=== PATIENT | male | born 1950 | race Caucasian/White ===

== ENCOUNTER 2017-09-13 19:15 | Observation (INO) ==
[2017-09-13] MEDS ORDERED: Aspirin 81 MG TAB.CHEW PO ONE (19:54)
[2017-09-13] MEDS ORDERED: Nitroglycerin 0.4 MG TAB.SUBL SL PRN (19:54)
[2017-09-13] MEDS ORDERED: Ondansetron 4 MG/2 ML VIAL IVP ONE (19:54)
--- NOTE | 2017-09-13 19:57 | Emergency Department Note ---
Disposition Clinical Impression: Flank pain Chest pain Qualifiers: Chest pain type: unspecified Qualified Code(s): R07.9 - Chest pain, unspecified Disposition: Admitted As Inpatient Condition: Fair Referrals: David Alston MD [Primary Care Provider] - Forms: ED Satisfaction Letter Time of Disposition: 21:45 Chest Pain HPI - General Chief Complaint: ED Chest Pain Stated Complaint: chest pain,left arm pain Time Seen by Provider: 09/13/17 19:51 Source: patient Mode of arrival: ambulatory Limitations: no limitations Vital Signs Reviewed: Yes Nursing Notes Reviewed: Yes - History of Present Illness HPI Narrative: 67-year-old male with history of hypertension presents for evaluation of chest pain. Patient states symptom onset was earlier today. Patient states he has had intermittent chest pain. Patient noted the retrosternal chest pain without exertion with radiation to his left side of his chest. Patient reports of nausea but no vomiting. Patient also noted some chills with hot flashes. Patient states the pain has persisted. Patient also has a history of reflux and states that this pain is different than his typical reflux. Patient took a baby aspirin earlier today. Patient states that his initial chest pain has improved but notes a burning sensation in his chest. Patient also noted some dyspnea. No fevers or cough. Patient denies any abdominal pain. Patient does state that he had some testicular pain over the past 24 hours which has since resolved. Severity scale (1-10): 8 - Related Data Home Medications Medication Instructions Recorded Confirmed Amiloride/Hydrochlorothiazide 1 tab PO DAILY 07/18/16 09/13/17 [Amiloride HCl-Hctz 5-50 mg Tab] Aspirin Enteric Coated [Aspirin EC] 81 mg PO DAILY 07/18/16 09/13/17 Omeprazole 20 mg PO BID 07/18/16 09/13/17 Pravastatin Sodium [Pravachol] 40 mg PO DAILY 07/18/16 09/13/17 Quinapril HCl 10 mg PO DAILY 07/18/16 09/13/17 Zolpidem [Ambien] 10 mg PO HS PRN 07/18/16 09/13/17 Allergies Allergy/AdvReac Type Severity Reaction Status Date / Time No Known Allergies Allergy Verified 09/13/17 20:18 All systems ED: reviewed and negative except as stated. Constitutional: Denies: fever Cardiovascular: Reports: chest pain Respiratory: Reports: dyspnea. Denies: cough Gastrointestinal: Reports: nausea. Denies: abdominal pain, vomiting Chest Pain PMH - Past Medical History Medical history: Reports: GERD, hypertension Surgical history: Reports: orthopedic, other Psychiatric history: Reports: anxiety - Social History Smoking Status: Former smoker Alcohol use: Reports: none Drug use: Reports: none Physical Exam - General Limitations: no limitations General appearance: alert, in no apparent distress - Head Head exam: atraumatic, normocephalic, normal inspection - Eye Eye exam: Present: normal appearance, PERRL, EOMI - ENT ENT exam: normal exam, normal oropharynx, mucous membranes moist - Neck Neck exam: Present: normal inspection - Chest Chest inspection: Present: normal inspection, symmetric chest wall rise. Absent : tenderness - Respiratory Respiratory exam: Present: normal lung sounds bilaterally. Absent: respiratory distress - Cardiovascular Cardiovascular exam: Present: regular rate, normal rhythm. Absent: systolic murmur - Abdominal Exam Abdominal exam: Present: soft, Non-Tender - Extremities Exam Extremities exam: Present: normal inspection. Absent: pedal edema - Back Exam Back exam: Present: normal inspection - Neurological Exam Neurological exam: Present: alert - Skin Skin exam: Present: warm, dry, intact, normal color Course Course Narrative: Patient seen and examined. Patient will get a cardiac evaluation with EKG, troponin and chest x-ray. Patient will likely require admission for further cardiac monitoring and testing. - Reevaluation(s) Reevaluation #1: Patient seen and examined. Patient's plan of care was discussed. Patient states he has chronic back pain and perhaps the pain he is experiencing in his abdomen is more related to his back is worse with leaning forward. Time: 21:40 Vital Signs Temperature 98 F 09/13/17 19:16 Pulse Rate 83 09/13/17 19:16 Respiratory Rate 18 09/13/17 19:16 Blood Pressure 193/105 09/13/17 19:16 O2 Sat by Pulse Oximetry 99 09/13/17 19:16 Temperature 98 F 09/13/17 19:16 Pulse Rate 81 09/13/17 21:31 Respiratory Rate 12 09/13/17 21:31 Blood Pressure 123/78 09/13/17 21:31 O2 Sat by Pulse Oximetry 96 09/13/17 21:31 Oxygen Delivery Oxygen Delivery Room Air Chest Pain - MDM Narrative Medical decision making narrative: 67-year-old male presents for evaluation of chest pain. During the course of the ED evaluation the patient also mentioned that he had some testicular pain and some right-sided flank pain. Patient currently is denying any testicular claim notes flank pain primarily with leaning forward. Patient states he did have a history of chronic back pain. Given that complaint patient did get his CT of the abdomen and pelvis which showed no acute abnormalities. Patient's cardiac evaluation in the ER shows an abnormal EKG with bigeminy with no other acute abnormalities. Patient's troponin was negative. Given the patient's concerning history the patient will be admitted to the hospital service for further evaluation and provocative testing. Patient vitals been stable during the ED course. - Lab Data Lab results reviewed: Yes I reviewed the patient's lab results. Result diagrams: 09/13/17 19:55 09/13/17 19:55 Lab Results 09/13/17 09/13/17 09/13/17 Range/Units 19:55 19:55 19:56 WBC 7.2 (4.3-11.1) K/mcL RBC 5.06 (4.19-5.50) M/mcL Hgb 15.3 (12.9-16.9) g/dL Hct 42.6 (37.5-50.1) % MCV 84.2 (83.0-100.0) fL MCH 30.2 (28.0-33.3) pg MCHC 35.9 H (31.6-35.5) g/dL RDW 12.3 (11.5-14.5) % Plt Count 223 (140-400) K/mcL MPV 9.1 L (9.4-12.4) fL Immature Gran % 0.6 (0-4) % Seg Neutrophils % 59.5 % Lymphocytes % 28.3 % Monocytes % 8.8 % Eosinophils % 1.8 % Basophils % 1.0 % Neutrophils # 4.3 (1.6-8.9) K/mcL Lymphocytes # 2.0 (0.6-4.6) K/mcL Monocytes # 0.6 (0.0-1.3) K/mcL Eosinophils # 0.1 (0.0-0.6) K/mcL Basophils # 0.1 (0.0-0.2) K/mcL Sodium 130 L (136-145) mEq/L Potassium 3.6 (3.5-5.1) mEq/L Chloride 98 (98-107) mEq/L Carbon Dioxide 25 (23-29) mEq/L BUN 10 (8-23) mg/dL Creatinine 0.68 L (0.70-1.30) mg/dL Est GFR ( Amer) > 60 (> 60) Est GFR (Non-Af Amer) > 60 (> 60) BUN/Creatinine Ratio 15 (6-26) Glucose 130 H (70-105) mg/dL Calculated Osmolality 271 L (280-300) Calcium 9.6 (8.6-10.3) mg/dL Phosphorus 2.2 L (2.7-4.5) mg/dL Magnesium 1.8 (1.6-2.6) mg/dL Total Bilirubin 0.7 (0.3-1.0) mg/dL Direct Bilirubin 0.2 (0.0-0.2) mg/dL Indirect Bilirubin 0.5 (0.0-1.2) mg/dL AST 19 (13-39) Units/L ALT 23 (7-52) Units/L Alkaline Phosphatase 33 L (34-104) Units/L Troponin I < 0.03 (< 0.04) ng/mL Serum Total Protein 6.8 (6.4-8.9) g/dL Albumin 4.4 (3.5-5.7) g/dL Globulin 2.4 (2.4-3.5) g/dL Albumin/Globulin Ratio 1.8 (1.1-2.2) Lipase 10 L (11-82) Units/L Urine Color (Yellow) Urine Clarity (Clear) Urine pH (5.0-8.0) pH Units Ur Specific [place] (1.010-1.025) Urine Protein (Neg-Trace) mg/dL Urine Glucose (UA) (Normal) mg/dL Urine Ketones (Negative) mg/dL Urine Blood (Negative) Urine Nitrite (Negative) Urine Bilirubin (Negative) Urine Urobilinogen (Normal) mg/dL Ur Leukocyte Esterase (Negative) Ur Culture Indicated? (NO) 09/13/17 Range/Units 20:09 WBC (4.3-11.1) K/mcL RBC (4.19-5.50) M/mcL Hgb (12.9-16.9) g/dL Hct (37.5-50.1) % MCV (83.0-100.0) fL MCH (28.0-33.3) pg MCHC (31.6-35.5) g/dL RDW (11.5-14.5) % Plt Count (140-400) K/mcL MPV (9.4-12.4) fL Immature Gran % (0-4) % Seg Neutrophils % % Lymphocytes % % Monocytes % % Eosinophils % % Basophils % % Neutrophils # (1.6-8.9) K/mcL Lymphocytes # (0.6-4.6) K/mcL Monocytes # (0.0-1.3) K/mcL Eosinophils # (0.0-0.6) K/mcL Basophils # (0.0-0.2) K/mcL Sodium (136-145) mEq/L Potassium (3.5-5.1) mEq/L Chloride (98-107) mEq/L Carbon Dioxide (23-29) mEq/L BUN (8-23) mg/dL Creatinine (0.70-1.30) mg/dL Est GFR ( Amer) (> 60) Est GFR (Non-Af Amer) (> 60) BUN/Creatinine Ratio (6-26) Glucose (70-105) mg/dL Calculated Osmolality (280-300) Calcium (8.6-10.3) mg/dL Phosphorus (2.7-4.5) mg/dL Magnesium (1.6-2.6) mg/dL Total Bilirubin (0.3-1.0) mg/dL Direct Bilirubin (0.0-0.2) mg/dL Indirect Bilirubin (0.0-1.2) mg/dL AST (13-39) Units/L ALT (7-52) Units/L Alkaline Phosphatase (34-104) Units/L Troponin I (< 0.04) ng/mL Serum Total Protein (6.4-8.9) g/dL Albumin (3.5-5.7) g/dL Globulin (2.4-3.5) g/dL Albumin/Globulin Ratio (1.1-2.2) Lipase (11-82) Units/L Urine Color Yellow (Yellow) Urine Clarity Clear (Clear) Urine pH 8.0 (5.0-8.0) pH Units Ur Specific [place] 1.013 (1.010-1.025) Urine Protein Negative (Neg-Trace) mg/dL Urine Glucose (UA) Normal (Normal) mg/dL Urine Ketones Negative (Negative) mg/dL Urine Blood Negative (Negative) Urine Nitrite Negative (Negative) Urine Bilirubin Negative (Negative) Urine Urobilinogen Normal (Normal) mg/dL Ur Leukocyte Esterase Negative (Negative) Ur Culture Indicated? NO (NO) - Radiology Data Radiology results reviewed: Yes I reviewed the patient's radiology results. Chest X-Ray 09/13/17 19:52 IMPRESSION: No acute findings. D/ / José Panda MD / José Panda MD Interpreting Provider: José Panda MD Abdomen/Pelvis CT 09/13/17 20:35 IMPRESSION: 1. Unchanged nonobstructing calculus inferior pole left kidney measures about [address] evidence of an acute intra-abdominal or intrapelvic process. 3. Calcific atherosclerotic disease aorta. D/ / Blake Faulkner / Blake Faulkner Interpreting Provider: Blake Faulkner - EKG Data EKG attestation: Yes I reviewed and interpreted this EKG. EKG shows normal: sinus rhythm Rate: normal Rhythm: NSR [place]/QRS: left axis deviation Ectopy: bigeminy When compared to previous EKG there are: changes noted Interpretation: nonspecific ST-T wave changes Heart Score - Score History: Moderately Suspicious EKG: Non Specific repolarisation Disturbance Age: Greater than 65 Risk Factors: 1-2 risk factors Troponin: Less than normal limit HEART Score Total: 5 S.B.A.RPiper - S.B.A.RPiper Situation: Demographics Background: Presenting Complaint Assessment: Vital Signs, Patient/Family Expectation Recommendation: Barrier(s) to disposition, Recommendation based on pending studies, treatments, or consults S.B.APiperRPiper Report Given to: Dr. Bonnie Cason [facility] Time: 21:43
[2017-09-13 20:09] LABS: Basophils # 0.1 K/mcL (0.0-0.2); Eosinophils # 0.1 K/mcL (0.0-0.6); Eosinophils % 1.8 %; Hematocrit 42.6 % (37.5-50.1); Hemoglobin 15.3 g/dL (12.9-16.9); Immature Granulocytes % 0.6 % (0-4); Lymphocytes % 28.3 %; Mean Corpuscular HGB Conc 35.9 g/dL (31.6-35.5); Mean Corpuscular Hemoglobin 30.2 pg (28.0-33.3); Mean Corpuscular Volume 84.2 fL (83.0-100.0); Mean Platelet Volume 9.1 fL (9.4-12.4); Monocytes # 0.6 K/mcL (0.0-1.3); Monocytes % 8.8 %; Neutrophils # 4.3 K/mcL (1.6-8.9); Platelet Count 223 K/mcL (140-400); Red Blood Count 5.06 M/mcL (4.19-5.50); Red Cell Distribution Width 12.3 % (11.5-14.5); Segmented Neutrophils % 59.5 %
[2017-09-13 20:22] LABS: Bilirubin,Urine Negative (Negative); Blood,Urine Negative (Negative); Clarity,Urine Clear (Clear); Color,Urine Yellow (Yellow); Glucose,Urine (UA) Normal (Normal); Ketones,Urine Negative (Negative); Leukocyte Esterase,Urine Negative (Negative); Nitrite,Urine Negative (Negative); Protein,Urine Negative (Neg-Trace); Specific Gravity,Urine 1.013 (1.010-1.025); Urobilinogen,Urine Normal (Normal)
[2017-09-13 20:27] LABS: Magnesium 1.8 mg/dL (1.6-2.6); Phosphorous 2.2 mg/dL (2.7-4.5)
[2017-09-13 20:28] LABS: Troponin I < 0.03 ng/mL (< 0.04)
[2017-09-13 20:29] LABS: Alanine Aminotransferase 23 Units/L (7-52); Albumin 4.4 g/dL (3.5-5.7); Albumin/Globulin Ratio 1.8 (1.1-2.2); Alkaline Phosphatase 33 Units/L (34-104); Aspartate Amino Transferase 19 Units/L (13-39); BUN/Creatinine Ratio 15 (6-26); Bilirubin,Direct 0.2 mg/dL (0.0-0.2); Bilirubin,Indirect 0.5 mg/dL (0.0-1.2); Bilirubin,Total 0.7 mg/dL (0.3-1.0); Blood Urea Nitrogen 10 mg/dL (8-23); Calcium 9.6 mg/dL (8.6-10.3); Carbon Dioxide 25 mEq/L (23-29); Chloride 98 mEq/L (98-107); Globulin 2.4 g/dL (2.4-3.5); Glucose 130 mg/dL (70-105); Lipase 10 Units/L (11-82); Osmolality,Calculated 271 (280-300); Potassium 3.6 mEq/L (3.5-5.1); Sodium 130 mEq/L (136-145); Total Protein 6.8 g/dL (6.4-8.9); eGFR For African Americans > 60 (> 60); eGFR For Non-African Americans > 60 (> 60)
[2017-09-13] MEDS ORDERED: GI Cocktail 40 ML EACH PO ONE (21:39)
--- NOTE | 2017-09-13 21:51 | Emergency Department Note ---
Disposition Clinical Impression: Flank pain Chest pain Qualifiers: Chest pain type: unspecified Qualified Code(s): R07.9 - Chest pain, unspecified Disposition: Admitted As Inpatient Condition: Fair Referrals: David Alston MD [Primary Care Provider] - Forms: ED Satisfaction Letter General Adult HPI - General Chief complaint: ED Chest Pain Stated complaint: chest pain,left arm pain Time Seen by Provider: 09/13/17 19:51 Source: patient Mode of arrival: ambulatory Limitations: no limitations Nursing Notes Reviewed: Yes Vital Signs Reviewed: Yes - History of Present Illness Pain Scale: 8 - Related Data Home Medications Medication Instructions Recorded Confirmed Amiloride/Hydrochlorothiazide 1 tab PO DAILY 07/18/16 09/13/17 [Amiloride HCl-Hctz 5-50 mg Tab] Aspirin Enteric Coated [Aspirin EC] 81 mg PO DAILY 07/18/16 09/13/17 Omeprazole 20 mg PO BID 07/18/16 09/13/17 Pravastatin Sodium [Pravachol] 40 mg PO DAILY 07/18/16 09/13/17 Quinapril HCl 10 mg PO DAILY 07/18/16 09/13/17 Zolpidem [Ambien] 10 mg PO HS PRN 07/18/16 09/13/17 Allergies Allergy/AdvReac Type Severity Reaction Status Date / Time No Known Allergies Allergy Verified 09/13/17 20:18 Constitutional: Denies: fever Cardiovascular: Reports: chest pain Respiratory: Reports: dyspnea. Denies: cough Gastrointestinal: Reports: nausea. Denies: abdominal pain, vomiting Past Medical History - Past Medical History Medical history: Reports: GERD, hypertension Surgical history: Reports: orthopedic, other Psychiatric history: Reports: anxiety - Social History Smoking Status: Former smoker Alcohol use: Reports: none Drug use: Reports: none Physical Exam - General Limitations: no limitations General appearance: alert, in no apparent distress Course Vital Signs Temperature 98 F 09/13/17 19:16 Pulse Rate 83 09/13/17 19:16 Respiratory Rate 18 09/13/17 19:16 Blood Pressure 193/105 09/13/17 19:16 O2 Sat by Pulse Oximetry 99 09/13/17 19:16 Temperature 98 F 09/13/17 19:16 Pulse Rate 81 09/13/17 21:31 Respiratory Rate 12 09/13/17 21:31 Blood Pressure 123/78 09/13/17 21:31 O2 Sat by Pulse Oximetry 96 09/13/17 21:31 Oxygen Delivery Oxygen Delivery Room Air Medical Decision Making - Lab Data Result diagrams: 09/13/17 19:55 09/13/17 19:55 Lab Results 09/13/17 09/13/17 09/13/17 Range/Units 19:55 19:55 19:56 WBC 7.2 (4.3-11.1) K/mcL RBC 5.06 (4.19-5.50) M/mcL Hgb 15.3 (12.9-16.9) g/dL Hct 42.6 (37.5-50.1) % MCV 84.2 (83.0-100.0) fL MCH 30.2 (28.0-33.3) pg MCHC 35.9 H (31.6-35.5) g/dL RDW 12.3 (11.5-14.5) % Plt Count 223 (140-400) K/mcL MPV 9.1 L (9.4-12.4) fL Immature Gran % 0.6 (0-4) % Seg Neutrophils % 59.5 % Lymphocytes % 28.3 % Monocytes % 8.8 % Eosinophils % 1.8 % Basophils % 1.0 % Neutrophils # 4.3 (1.6-8.9) K/mcL Lymphocytes # 2.0 (0.6-4.6) K/mcL Monocytes # 0.6 (0.0-1.3) K/mcL Eosinophils # 0.1 (0.0-0.6) K/mcL Basophils # 0.1 (0.0-0.2) K/mcL Sodium 130 L (136-145) mEq/L Potassium 3.6 (3.5-5.1) mEq/L Chloride 98 (98-107) mEq/L Carbon Dioxide 25 (23-29) mEq/L BUN 10 (8-23) mg/dL Creatinine 0.68 L (0.70-1.30) mg/dL Est GFR ( Amer) > 60 (> 60) Est GFR (Non-Af Amer) > 60 (> 60) BUN/Creatinine Ratio 15 (6-26) Glucose 130 H (70-105) mg/dL Calculated Osmolality 271 L (280-300) Calcium 9.6 (8.6-10.3) mg/dL Phosphorus 2.2 L (2.7-4.5) mg/dL Magnesium 1.8 (1.6-2.6) mg/dL Total Bilirubin 0.7 (0.3-1.0) mg/dL Direct Bilirubin 0.2 (0.0-0.2) mg/dL Indirect Bilirubin 0.5 (0.0-1.2) mg/dL AST 19 (13-39) Units/L ALT 23 (7-52) Units/L Alkaline Phosphatase 33 L (34-104) Units/L Troponin I < 0.03 (< 0.04) ng/mL Serum Total Protein 6.8 (6.4-8.9) g/dL Albumin 4.4 (3.5-5.7) g/dL Globulin 2.4 (2.4-3.5) g/dL Albumin/Globulin Ratio 1.8 (1.1-2.2) Lipase 10 L (11-82) Units/L Urine Color (Yellow) Urine Clarity (Clear) Urine pH (5.0-8.0) pH Units Ur Specific [place] (1.010-1.025) Urine Protein (Neg-Trace) mg/dL Urine Glucose (UA) (Normal) mg/dL Urine Ketones (Negative) mg/dL Urine Blood (Negative) Urine Nitrite (Negative) Urine Bilirubin (Negative) Urine Urobilinogen (Normal) mg/dL Ur Leukocyte Esterase (Negative) Ur Culture Indicated? (NO) 09/13/17 Range/Units 20:09 WBC (4.3-11.1) K/mcL RBC (4.19-5.50) M/mcL Hgb (12.9-16.9) g/dL Hct (37.5-50.1) % MCV (83.0-100.0) fL MCH (28.0-33.3) pg MCHC (31.6-35.5) g/dL RDW (11.5-14.5) % Plt Count (140-400) K/mcL MPV (9.4-12.4) fL Immature Gran % (0-4) % Seg Neutrophils % % Lymphocytes % % Monocytes % % Eosinophils % % Basophils % % Neutrophils # (1.6-8.9) K/mcL Lymphocytes # (0.6-4.6) K/mcL Monocytes # (0.0-1.3) K/mcL Eosinophils # (0.0-0.6) K/mcL Basophils # (0.0-0.2) K/mcL Sodium (136-145) mEq/L Potassium (3.5-5.1) mEq/L Chloride (98-107) mEq/L Carbon Dioxide (23-29) mEq/L BUN (8-23) mg/dL Creatinine (0.70-1.30) mg/dL Est GFR ( Amer) (> 60) Est GFR (Non-Af Amer) (> 60) BUN/Creatinine Ratio (6-26) Glucose (70-105) mg/dL Calculated Osmolality (280-300) Calcium (8.6-10.3) mg/dL Phosphorus (2.7-4.5) mg/dL Magnesium (1.6-2.6) mg/dL Total Bilirubin (0.3-1.0) mg/dL Direct Bilirubin (0.0-0.2) mg/dL Indirect Bilirubin (0.0-1.2) mg/dL AST (13-39) Units/L ALT (7-52) Units/L Alkaline Phosphatase (34-104) Units/L Troponin I (< 0.04) ng/mL Serum Total Protein (6.4-8.9) g/dL Albumin (3.5-5.7) g/dL Globulin (2.4-3.5) g/dL Albumin/Globulin Ratio (1.1-2.2) Lipase (11-82) Units/L Urine Color Yellow (Yellow) Urine Clarity Clear (Clear) Urine pH 8.0 (5.0-8.0) pH Units Ur Specific [place] 1.013 (1.010-1.025) Urine Protein Negative (Neg-Trace) mg/dL Urine Glucose (UA) Normal (Normal) mg/dL Urine Ketones Negative (Negative) mg/dL Urine Blood Negative (Negative) Urine Nitrite Negative (Negative) Urine Bilirubin Negative (Negative) Urine Urobilinogen Normal (Normal) mg/dL Ur Leukocyte Esterase Negative (Negative) Ur Culture Indicated? NO (NO) Attestation Statement - Attestation Attestation: I, Atul Choi MD, personally evaluated this patient and discussed their management with the resident physician. I reviewed the resident's note and agree with the documented findings, medical decision making, and plan of care. 67-year-old male presents to the emergency department with a complaint of substernal chest pain which started this afternoon. Onset of pain was at rest. He describes the pain as it felt like someone sitting on his chest. The pain radiated to the left upper chest. He also had some radiation to the left arm. Also some radiation to the right shoulder with some numbness sensation in the right shoulder. No prior history of heart disease however he does have a history of hypertension. He was a smoker in the distant past. Some nausea associated with chest pain. Also some shortness of breath. No diaphoresis but he did feel hot and flushed and then chilled. He also complains of having some intermittent flank pain over his right kidney which has been going on for some time and recently seemed to move down into the right testicle. He did see his PCP and was given antibiotics for possible UTI but symptoms have continued. No dysuria or gross hematuria. No swelling of the scrotum or testicle. On examination patient is a well-developed well-nourished well-appearing elderly male in no acute distress. He is alert and oriented 3. There is no cyanosis or diaphoresis. Tender to palpation. Breath sounds are clear and equal bilaterally. Heart regular rate and rhythm. Abdomen is soft and nontender with normal bowel sounds. EKG shows a normal sinus rhythm with frequent PVCs in a bigeminy pattern. The underlying rhythm shows no acute ischemic changes and no significant change from prior EKG from 2007. Labs reviewed and unremarkable. Troponin normal. Chest x-ray negative. Patient also had a CT of the abdomen and pelvis which was negative for acute abnormality. The hospitalist, Dr. Nicole, was consulted and accepted admission of the patient.
--- NOTE | 2017-09-13 22:33 | Internal Med History&Physical ---
Date of Encounter: 09/13/17 Time of Encounter: 22:30 Internal Medicine - H&P: HPI Chief complaint: chest pain Admitted From: Emergency Dept Plans for Post Hospital Care: Home History of present illness: Mr. Currie is a 67 year old male Patient with history of hypertension, high cholesterol, GERD, and anxiety patient presented emergency room with recurrent chest pain describes as pressure radiates to right shoulder no relationship to activity he came into the emergency room the chest pain has subsided and then given sublingual nitroglycerin and is now resolved EKG is sinus rhythm with bigeminy patient had a nuclear stress test done 06/30/2015 was negative for ischemia EF of 65%. Patient will prefer not to have nuclear stress test because says takes too long and he says hurts his back to lay for such long process therefore I will consult cardiology for discussion about the option with the patient. Troponin so far is negative Past Med Surg Social Fam HX - Past Medical History Medical history: GERD, hypertension Psychiatric history: anxiety - Past Surgical History Surgical History: orthopedic, other - Social History Smoking Status: Former smoker Alcohol use: none Drug use: none Internal Medicine - H&P: Meds Amiloride/Hydrochlorothiazide [Amiloride HCl-Hctz 5-50 mg Tab] 1 tab PO DAILY [History] Aspirin Enteric Coated [Aspirin EC] 81 mg PO DAILY 07/18/16 [History] Omeprazole 20 mg PO BID 07/18/16 [History] Pravastatin Sodium [Pravachol] 40 mg PO DAILY 07/18/16 [History] Quinapril HCl 10 mg PO DAILY 07/18/16 [History] Zolpidem [Ambien] 10 mg PO HS PRN 07/18/16 [History] 3 Allergy/AdvReac Type Severity Reaction Status Date / Time No Known Allergies Allergy Verified 09/13/17 20:18 All Systems PM: A 10-system review of systems was performed and is negative for pertinent findings except as documented above in the HPI. - Constitutional Vitals: Temp Pulse Resp BP Pulse Ox 98 F 81 12 123/78 96 09/13/17 19:16 09/13/17 21:31 09/13/17 21:31 09/13/17 21:31 09/13/17 21:31 - Head Head exam: Present: atraumatic, normocephalic - Eye Eye exam: Present: PERRL, conjuntiva pink, sclera anicteric Pupils: Present: PERRL - Neck Neck exam general surgery: Present: supple, trachea midline. Absent: lymphadenopathy - Respiratory Respiratory exam: Present: CTAB. Absent: accessory muscle use, rales, rhonchi, wheezes - Cardiovascular Cardiovascular exam: Present: RRR, +S1, +S2. Absent: diastolic murmur, gallop, rubs, systolic murmur - GI/Abdominal GI/Abdominal exam: Present: normal bowel sounds, soft, no peritoneal signs. Absent: distended, tenderness - Extremities Exam Extremities exam: Present: warm, radial pulses palpable and symmetrical. Absent : calf tenderness, cyanotic, pedal edema - Neurological Exam Neurological exam: Present: CN II-XII intact, oriented X3, no focal deficits. Absent: pronater drift, facial droop, speech deficit - Skin Skin exam: Present: dry, intact Internal Med - H&P Results - Labs CBC & Chem 7: 09/13/17 19:55 09/13/17 19:55 Labs: Short CBC 09/13/17 Range/Units 19:55 WBC 7.2 (4.3-11.1) K/mcL Hgb 15.3 (12.9-16.9) g/dL Hct 42.6 (37.5-50.1) % Plt Count 223 (140-400) K/mcL Neutrophils # 4.3 (1.6-8.9) K/mcL BMP 09/13/17 19:55 Sodium 130 L Potassium 3.6 Chloride 98 Carbon Dioxide 25 BUN 10 Creatinine 0.68 L Glucose 130 H Calcium 9.6 Cardiac Enzymes 09/13/17 Range/Units 19:55 Troponin I < 0.03 (< 0.04) ng/mL Liver Function 09/13/17 Range/Units 19:55 Total Bilirubin 0.7 (0.3-1.0) mg/dL Direct Bilirubin 0.2 (0.0-0.2) mg/dL AST 19 (13-39) Units/L ALT 23 (7-52) Units/L Alkaline Phosphatase 33 L (34-104) Units/L Albumin 4.4 (3.5-5.7) g/dL Urine 09/13/17 Range/Units 20:09 Urine Color Yellow (Yellow) Urine Clarity Clear (Clear) Urine pH 8.0 (5.0-8.0) pH Units Ur Specific [place] 1.013 (1.010-1.025) Urine Protein Negative (Neg-Trace) mg/dL Urine Glucose (UA) Normal (Normal) mg/dL - Impressions ITS Impressions Chest X-Ray 09/13/17 19:52 IMPRESSION: No acute findings. D/ / José Panda MD / José Panda MD Interpreting Provider: José Panda MD Abdomen/Pelvis CT 09/13/17 20:35 IMPRESSION: 1. Unchanged nonobstructing calculus inferior pole left kidney measures about [address] evidence of an acute intra-abdominal or intrapelvic process. 3. Calcific atherosclerotic disease aorta. D/ / Blake Faulkner / Blake Faulkner Interpreting Provider: Blake Faulkner - Assessment and plan (1) HTN (hypertension) Current Visit: Yes Status: Chronic Assessment and plan: Chronic and well controlled Qualifiers: Hypertension type: essential hypertension Qualified Code(s): I10 - Essential (primary) hypertension (2) Hyperlipidemia Current Visit: Yes Status: Chronic Assessment and plan: Chronic resume home medication and check profile in a.m. Qualifiers: Hyperlipidemia type: pure hypercholesterolemia Qualified Code(s): E78.00 - Pure hypercholesterolemia, unspecified; E78.0 - Pure hypercholesterolemia (3) Chest pain Current Visit: Yes Status: Acute Assessment and plan: Patient with chest pain troponin so far is negative nuclear stress test does not 16 was negative for ischemia patient will prefer not to undergo stress test therefore we will consult connoting for further evaluation. Qualifiers: Chest pain type: precordial pain Qualified Code(s): R07.2 - Precordial pain - Time Spent With Patient Total time spent is greater than 50% in coordination of care (as documented) at patient's floor/unit and/or counseling patient:
[2017-09-13] MEDS ORDERED: Naloxone 0.4 MG/ML INJ IVP PRN (22:40)
[2017-09-14 05:44] LABS: Basophils # 0.1 K/mcL (0.0-0.2); Eosinophils # 0.2 K/mcL (0.0-0.6); Eosinophils % 3.3 %; Hematocrit 41.6 % (37.5-50.1); Hemoglobin 14.4 g/dL (12.9-16.9); Immature Granulocytes % 0.7 % (0-4); Lymphocytes # 2.1 K/mcL (0.6-4.6); Lymphocytes % 36.9 %; Mean Corpuscular HGB Conc 34.6 g/dL (31.6-35.5); Mean Corpuscular Hemoglobin 30.2 pg (28.0-33.3); Mean Corpuscular Volume 87.2 fL (83.0-100.0); Mean Platelet Volume 9.5 fL (9.4-12.4); Monocytes # 0.6 K/mcL (0.0-1.3); Monocytes % 9.5 %; Neutrophils # 2.8 K/mcL (1.6-8.9); Platelet Count 218 K/mcL (140-400); Red Blood Count 4.77 M/mcL (4.19-5.50); Red Cell Distribution Width 12.3 % (11.5-14.5); Segmented Neutrophils % 48.6 %
[2017-09-14 06:10] LABS: Alanine Aminotransferase 20 Units/L (7-52); Albumin 4.1 g/dL (3.5-5.7); Albumin/Globulin Ratio 1.7 (1.1-2.2); Alkaline Phosphatase 29 Units/L (34-104); Aspartate Amino Transferase 19 Units/L (13-39); BUN/Creatinine Ratio 13 (6-26); Bilirubin,Total 0.6 mg/dL (0.3-1.0); Blood Urea Nitrogen 9 mg/dL (8-23); Calcium 9.4 mg/dL (8.6-10.3); Carbon Dioxide 26 mEq/L (23-29); Chloride 100 mEq/L (98-107); Chol/HDL Ratio 3.5 (0-4.9); Cholesterol 154 mg/dL (< 200); Globulin 2.4 g/dL (2.4-3.5); Glucose 108 mg/dL (70-105); HDL Cholesterol 44 mg/dL (40-59); LDL Cholesterol,Calculated 93 mg/dL (0-99); Osmolality,Calculated 273 (280-300); Potassium 3.9 mEq/L (3.5-5.1); Sodium 132 mEq/L (136-145); Total Protein 6.5 g/dL (6.4-8.9); Triglycerides 85 mg/dL (< 150); eGFR For African Americans > 60 (> 60); eGFR For Non-African Americans > 60 (> 60)
[2017-09-14] MEDS: Aspirin Enteric Coated 81 MG Tablet PO SCH (08:34)
--- NOTE | 2017-09-14 09:33 | Cardiology Consult Note ---
<Lizeth Ibrahim - Last Filed: 09/14/17 10:25> Date of Encounter: 09/14/17 Time of Encounter: 10:21 Assessment and Plan (1) Chest pain Status: Acute Atypical chest pain. Most likely non cardiac and stemming from gastric issues. Patient has normal stress test 2016. No exertional pain. Troponin WNL x3. Qualifiers: Chest pain type: unspecified Qualified Code(s): R07.9 - Chest pain, unspecified Discussion w patient/family: The assessment and plan as outlined above was discussed with the patient and/or family members who expressed understanding and agreement. All questions were answered. Thank you for involving us in the care of your patient. Please call with any questions. History of Present Illness Consult date: 09/14/17 Consult reason: Chest Pain History of present illness: Mr. Currie is a 67 year old male with history of hypertension, high cholesterol, GERD, and anxiety that presented to the ED for epigastric abdominal pain that radiated up into his chest. Patient denies any increase in pain with exertion. Patient denies diaphoresis, nausea or vomiting. Denies radiation of the pain. Patient states this has happened multiple times in the past and has been worked up with a CT abdomen, endoscopy and colonoscopy. Patient was found to have mild chronic gastritis at that time and put on omeprazole. Patient states last evening he started having GERD like symptoms that radiated up into the lower portion of his chest. He was concerned when the symptoms did not go away and came in for further evaluation. Patient denies any cardiac history. Had stress test 07/07 which was WNL. Past Med Surg Social Fam HX - Past Medical History Attestation: Yes The following information was validated with the patient. Medical history: GERD, hyperlipidemia, hypertension Psychiatric history: anxiety - Past Surgical History Surgical History: orthopedic, other - Social History Smoking Status: Former smoker Smokeless Tobacco Status: No Alcohol use: none Drug use: none - Family History Father Living Status: Hx Family Cardiac Disorders: Yes ([place]) Hx Family Cancer: Yes (lymphoma hodkins) Medications and Allergies Amiloride/Hydrochlorothiazide [Amiloride HCl-Hctz 5-50 mg Tab] 1 tab PO DAILY [History] Aspirin Enteric Coated [Aspirin EC] 81 mg PO DAILY 07/18/16 [History] Omeprazole 20 mg PO BID 07/18/16 [History] Pravastatin Sodium [Pravachol] 40 mg PO DAILY 07/18/16 [History] Quinapril HCl 10 mg PO DAILY 07/18/16 [History] Zolpidem [Ambien] 10 mg PO HS PRN 07/18/16 [History] 3 Allergy/AdvReac Type Severity Reaction Status Date / Time No Known Allergies Allergy Verified 09/13/17 20:18 All Systems Review: The remainder of the systems were reviewed and are negative - Constitutional Constitutional: no fatigue, no fever(s) - EENT Eyes: no blurred vision, no loss of vision - Cardiovascular Cardiovascular: as per HPI - Respiratory Respiratory: no cough, no dyspnea - Gastrointestinal Gastrointestinal: abdominal pain, no hematemesis, no hematochezia - Musculoskeletal Musculoskeletal: no abnormal gait, no muscle weakness - Integumentary Integumentary: no rash - Neurological Neurological: no abnormal speech, no focal weakness Physical Examination Vital Signs, Last 4 Hours Temp Pulse Resp BP Pulse Ox 09/14/17 06:59 98.0 F 53 16 125/84 97 General: Conversant, No Apparent Distress HEENT: Atraumatic, Normocephaly, Mucus Membranes Moist Neck: No JVD, Normal carotid pulses Cardiac: Reg Rate and Rhythm, Normal S1 and S2, No Murmur Lungs: Normal Breath Sounds, No Wheeze, Rales, Rhonchi Neuro: Alert and responsive, No focal deficits noted Abdomen: Soft, Non-Tender Skin: No rashes noted on visualized skin Musculoskeletal: No Chest Wall Tenderness Extremities: No Clubbing, No Cyanosis, No Edema, Normal Pulses Results 09/14/17 04:48 09/14/17 04:48 Lab Results 09/14/17 09/14/17 09/14/17 04:48 04:48 04:48 WBC 5.8 Hgb 14.4 Hct 41.6 Plt Count 218 Sodium 132 L Potassium 3.9 Chloride 100 Carbon Dioxide 26 BUN 9 Creatinine 0.69 L Glucose 108 H Calcium 9.4 Magnesium 2.0 Total Bilirubin 0.6 AST 19 ALT 20 Alkaline Phosphatase 29 L Troponin I < 0.03 Consult Discharge Plan - Plan Instructions: Chest Pain (DC) Referrals: David Alston MD [Primary Care Provider] - 09/20/17 10:15 am Miguel Nguyen MD [Partnered Physician] - 09/21/17 2:50 pm <TinLenin Jerome - Last Filed: 09/15/17 11:02> Date of Encounter: 09/15/17 - Attending Attestation I examined this patient and my medical decision-making was reviewed with the Resident Physician. I agree with the documented findings, disposition and treatment plan as described except to the extent set forth below. I examined this patient and my medical decision-making was reviewed with the Resident Physician. I agree with the documented findings, disposition and treatment plan as described except to the extent set forth below. Chest pain, atypical for angina. Seems most consistent with GERD. Agree with pursuing GI evaluation. Assessment and Plan Discussion w patient/family: The assessment and plan as outlined above was discussed with the patient and/or family members who expressed understanding and agreement. All questions were answered. Thank you for involving us in the care of your patient. Please call with any questions. History of Present Illness History of present illness: Mr. Currie is a 67 year old male All Systems Review: The remainder of the systems were reviewed and are negative Physical Examination Vital Signs, Last 4 Hours Temp Pulse Resp BP Pulse Ox 09/15/17 10:50 97.6 F 66 15 118/85 96 09/15/17 08:21 69 14 108/69 96 09/15/17 07:51 74 14 110/70 95 09/15/17 07:50 67 18 120/65 98 09/15/17 07:45 66 16 117/63 95 09/15/17 07:24 97.8 F 80 18 143/94 97 Results 09/14/17 04:48 09/14/17 04:48
[2017-09-14] MEDS ORDERED: GI Cocktail 40 ML EACH PO ONE ×2 (13:28→20:30)
--- NOTE | 2017-09-14 21:47 | Internal Med Progress Note ---
Date of Encounter: 09/14/17 Time of Encounter: 12:00 - Assessment and plan (1) Chest pain Current Visit: Yes Status: Acute Assessment and plan: 1 Atypical, seen by cardiology suspect GI in Nature, will undergo EGD in am Normal stress in 2016 trop WNL x3 Qualifiers: Chest pain type: unspecified Qualified Code(s): R07.9 - Chest pain, unspecified (2) HTN (hypertension) Current Visit: Yes Status: Chronic Assessment and plan: cont home medications Qualifiers: Hypertension type: essential hypertension Qualified Code(s): I10 - Essential (primary) hypertension (3) GERD (gastroesophageal reflux disease) Current Visit: Yes Status: Acute Assessment and plan: Had EGD 2016- esophagus normal stomach normal duodenum normal on prilosec Qualifiers: Esophagitis presence: without esophagitis Qualified Code(s): K21.9 - Gastro -esophageal reflux disease without esophagitis - Time Spent With Patient Total time spent is greater than 50% in coordination of care (as documented) at patient's floor/unit and/or counseling patient: - Subjective Interval history: Patient was examined at bedside earlier today. Patient was evaluated by cardiology who feels patient CP GI in nature. Discuseed outpatient EGD follow up however patient requesting to be seen by GI during this admission. Discuseed with GI and patient will have EGD in AM - Constitutional Vitals: Temp Pulse Resp BP Pulse Ox 98.2 F 85 16 151/81 96 09/14/17 18:43 09/14/17 18:43 09/14/17 18:43 09/14/17 18:43 09/14/17 18:43 General appearance: Present: A&O X 3 - Head Head exam: Present: atraumatic, normocephalic - Eye Eye exam: Present: PERRL, conjuntiva pink, sclera anicteric Pupils: Present: PERRL - Neck Neck exam general surgery: Present: supple, trachea midline. Absent: lymphadenopathy - Respiratory Respiratory exam: Present: CTAB. Absent: accessory muscle use, rales, rhonchi, wheezes - Cardiovascular Cardiovascular exam: Present: RRR, +S1, +S2. Absent: diastolic murmur, gallop, rubs, systolic murmur - GI/Abdominal GI/Abdominal exam: Present: normal bowel sounds, soft, no peritoneal signs. Absent: distended, tenderness - Extremities Exam Extremities exam: Present: warm, radial pulses palpable and symmetrical. Absent : calf tenderness, cyanotic, pedal edema - Neurological Exam Neurological exam: Present: CN II-XII intact, oriented X3, no focal deficits. Absent: pronater drift, facial droop, speech deficit - Skin Skin exam: Present: dry, intact Internal Medicine: Result - Labs CBC & Chem 7: 09/14/17 04:48 09/14/17 04:48 Labs: Short CBC 09/14/17 Range/Units 04:48 WBC 5.8 (4.3-11.1) K/mcL Hgb 14.4 (12.9-16.9) g/dL Hct 41.6 (37.5-50.1) % Plt Count 218 (140-400) K/mcL Neutrophils # 2.8 (1.6-8.9) K/mcL BMP 09/14/17 04:48 Sodium 132 L Potassium 3.9 Chloride 100 Carbon Dioxide 26 BUN 9 Creatinine 0.69 L Glucose 108 H Calcium 9.4 Cardiac Enzymes 09/14/17 09/14/17 Range/Units 04:48 10:17 Troponin I < 0.03 < 0.03 (< 0.04) ng/mL Liver Function 09/14/17 Range/Units 04:48 Total Bilirubin 0.6 (0.3-1.0) mg/dL AST 19 (13-39) Units/L ALT 20 (7-52) Units/L Alkaline Phosphatase 29 L (34-104) Units/L Albumin 4.1 (3.5-5.7) g/dL Consult Discharge Plan - Plan Instructions: Chest Pain (DC) Referrals: David Alston MD [Primary Care Provider] - 09/20/17 10:15 am Miguel Nguyen MD [Partnered Physician] - 09/21/17 2:50 pm
[2017-09-15] MEDS ORDERED: *HR* Midazolam HCl 5 MG/5 ML VIAL IVP ONE (06:44)
[2017-09-15] MEDS ORDERED: *HR* FentaNYL (PF) 100 MCG/2 ML VIAL ONE (06:45)
[2017-09-15] MEDS: *HR* FentaNYL (PF) 100 MCG/2 ML VIAL IVP ONE ×2 (07:42→07:52)
--- NOTE | 2017-09-15 07:43 | Pre-Sedation Evaluation ---
Pre-sedation evaluation - Pre-sedation checklist Date of procedure: 09/15/17 Procedure: egd Recent Vitals: Last Vital Signs Temp 97.8 F 09/15/17 07:24 Pulse 80 09/15/17 07:24 Resp 18 09/15/17 07:24 BP 143/94 09/15/17 07:24 Pulse Ox 97 09/15/17 07:24 H&P (including ROS) documented in medical record: No Previous reaction to sedatives/anesthetics: No Dietary Status: NPO after Midnight ASA Classification *see protocol: CLASS III-Severe systemic disease Plan of Care: Pt appropriate candidate for procedure/moderate/conscious sedation , Risks/benefits of procedure/sedation discussed w/ patient/family
[2017-09-15] MEDS ORDERED: *HR* Midazolam HCl 2 MG/2 ML VIAL IVP ONE (07:44)
[2017-09-15] MEDS ORDERED: Tetracaine/Benzocaine/Butamben 200MG/SPRAY (100SPY/BOT) MM ONE (07:44)
[2017-09-15] MEDS ORDERED: Simethicone 40 MG/0.6 ML MLS IR ONE (07:44)
[2017-09-15] MEDS: Aspirin Enteric Coated 81 MG Tablet PO SCH (08:33)
--- NOTE | 2017-09-15 09:37 | Discharge Summary ---
- NOTES TO OUTPATIENT PROVIDER Notes to Outpatient Provider: Underwent EGD which was normal follow up with Dr Nguyen as outpatient Orders not resulted at time of discharge: Pending orders 09/15/17 07:55 Surgical Pathology [PTH] Routine Date of Encounter: 09/15/17 Time of Encounter: 09:35 - Discharge Diagnosis (1) Chest pain Priority: Primary Status: Acute Qualifiers: Chest pain type: unspecified Qualified Code(s): R07.9 - Chest pain, unspecified (2) HTN (hypertension) Priority: Secondary Status: Chronic Qualifiers: Hypertension type: essential hypertension Qualified Code(s): I10 - Essential (primary) hypertension (3) GERD (gastroesophageal reflux disease) Priority: Secondary Status: Acute Qualifiers: Esophagitis presence: without esophagitis Qualified Code(s): K21.9 - Gastro -esophageal reflux disease without esophagitis Hospital course: Mr. Currie is a 67 year old male PMH HTN high cholesterol GERD and anxiety. Presented to the ED for epigastric abdominal pain that radiated to chest . Has expereinced this in the past and has had CT ABD EGD and colonoscopy and was found to have mild chronic gastritis . He had a stress test in 07/07 which was negative . Tropinin were negative he was seen by cardiology who felt sx more GI than cardiac. He was seen by GI and underwent EGD which was normal. Advised to continue prilosec and follow up as outpatient. He tolerated procedure well, tolerating oral intake hemodynamically stable and ready for discharge Discharge discussed with: patient - Time Spent with Patient Total time spent providing and/or coordinating discharge services: - Discharge Medications Home Medications: Amiloride/Hydrochlorothiazide [Amiloride HCl-Hctz 5-50 mg Tab] 1 tab PO DAILY [History] Aspirin Enteric Coated [Aspirin EC] 81 mg PO DAILY 07/18/16 [History] Omeprazole 20 mg PO BID 07/18/16 [History] Pravastatin Sodium [Pravachol] 40 mg PO DAILY 07/18/16 [History] Quinapril HCl 10 mg PO DAILY 07/18/16 [History] Zolpidem [Ambien] 10 mg PO HS PRN 07/18/16 [History] Allergies/Adverse Reactions: 3 Allergy/AdvReac Type Severity Reaction Status Date / Time No Known Allergies Allergy Verified 09/13/17 20:18 Date of admission: 09/14/17 00:11 Primary care physician: David Alston MD Consults: 09/14/17 13:38 Consult to Gastroenterology [CONS] Routine Consulting Provider: Gastroenterology Naomie Reason for Consult: GERD Time Notified: 13:39 Call Completed: Yes Discharging clinician: Chaya Pickens Anticipated date of discharge: 09/15/17 - Constitutional Vitals: Temp Pulse Resp BP Pulse Ox 97.8 F 69 14 108/69 96 09/15/17 07:24 09/15/17 08:21 09/15/17 08:21 09/15/17 08:21 09/15/17 08:21 General appearance: Present: A&O X 3 - Head Head exam: Present: atraumatic, normocephalic - Eye Eye exam: Present: PERRL, conjuntiva pink, sclera anicteric Pupils: Present: PERRL - Neck Neck exam general surgery: Present: supple, trachea midline. Absent: lymphadenopathy - Respiratory Respiratory exam: Present: CTAB. Absent: accessory muscle use, rales, rhonchi, wheezes - Cardiovascular Cardiovascular exam: Present: RRR, +S1, +S2. Absent: diastolic murmur, gallop, rubs, systolic murmur - GI/Abdominal GI/Abdominal exam: Present: normal bowel sounds, soft, no peritoneal signs. Absent: distended, tenderness - Extremities Exam Extremities exam: Present: warm, radial pulses palpable and symmetrical. Absent : calf tenderness, cyanotic, pedal edema - Neurological Exam Neurological exam: Present: CN II-XII intact, oriented X3, no focal deficits. Absent: pronater drift, facial droop, speech deficit - Skin Skin exam: Present: dry, intact - Patient Status Disposition: Home, Self-Care Condition: Fair - Discharge Instructions Instructions: Chest Pain (DC) Follow Up With: David Alston MD [Primary Care Provider] - 09/20/17 10:15 am Miguel Nguyen MD [Partnered Physician] - 09/21/17 2:50 pm
[2017-09-15 10:51] VITALS: BP 118/85
--- NOTE | 2017-09-15 11:46 | Gastroenterology Consult Note ---
<Marly Henderson - Last Filed: 09/15/17 11:36> Date of Encounter: 09/15/17 Time of Encounter: 08:50 - Assessment and plan (1) Chest pain Status: Acute Assessment and plan: Plan for EGD to rule out esophagitis, gastritis, duodenitis, pUd, mw tear or avm. Continue pPIl. Follow as outpatient Qualifiers: Chest pain type: unspecified Qualified Code(s): R07.9 - Chest pain, unspecified (2) GERD (gastroesophageal reflux disease) Status: Acute Qualifiers: Esophagitis presence: without esophagitis Qualified Code(s): K21.9 - Gastro -esophageal reflux disease without esophagitis - Time Spent With Patient Total time spent is greater than 50% in coordination of care (as documented) at patient's floor/unit and/or counseling patient: GI History of Present Illness - Data of Consult Patient: known to practice within the last 3 years Consult date: 09/15/17 Requesting Physician: Darwin Nicole MD - Consult Narrative Reason for consult: chest pain History of present illness: Mr. Currie is a 67 year old male with history of hypertension, high cholesterol, GERD, and anxiety. He presented with recurrent chest pain describes as pressure radiates to right shoulder no relationship to activity. EKG is sinus rhythm with bigeminy. He had a nuclear stress test done 06/30/2015 was negative for ischemia EF of 65%. Troponins were negative. He reports increased GERD, chest pain and "Hot flashes" for the past 2 days at home. he has been on omeprazole 20 mg BID at home. He had nausea and vomiting, denies hematemesis. He denies diarrhea, reports some constipation. He denies bloody or tarry stools. He was treated for H pylori in 2016. EGD: 08/05 mild gastritis COLON: 12/03 normal NSAIDS: none Anticoagulants: none Past Med Surg Social Fam HX - Past Medical History Medical history: GERD, hyperlipidemia, hypertension Psychiatric history: anxiety - Past Surgical History Surgical History: orthopedic, other - Social History Smoking Status: Former smoker Smokeless Tobacco Status: No Alcohol use: none Drug use: none - Family History Father Living Status: Hx Family Cardiac Disorders: Yes ([place]) Hx Family Cancer: Yes (lymphoma hodkins) Review of Systems: GI: as per [facility]: denies fever, or chills EYES: denies yellow discoloration ENT: denies pain with swallowing or difficulty swallowing CARDIO: see HPI RESP: No Shortness of breath with exertion : denies change in color of urine NEURO: denies any weakness HEME: Denies any bruising MS: denies joint pain, joint swelling or back pain. DERM: denies rash or itching PSYCH: history of anxiety - Constitutional Vitals: Temp Pulse Resp BP Pulse Ox 97.6 F 66 15 118/85 96 09/15/17 10:50 09/15/17 10:50 09/15/17 10:50 09/15/17 10:50 09/15/17 10:50 Exam: CONSTITUTIONAL:~alert, no acute distress.~HEAD:~normocephalic.~EYES:~no jaundice.~NECK:~no obvious swelling.~HEART:~regular rate and rhythm, no murmurs. ~LUNGS:~bilateral good air entry.~ABDOMEN:~non distended, soft, non tender, no masses palpable, no organomegaly.~RECTAL EXAM:~Deferred.~EXTREMITIES:~no clubbing, cyanosis or edema.~SKIN:~no stigmata of chronic liver disease.~ NEUROLOGIC:~no obvious focal defect.~~~~ Results - Labs CBC & Chem 7: 09/14/17 04:48 09/14/17 04:48 Labs: Last Result Calcium 9.4 mg/dL (8.6-10.3) 09/14/17 04:48 Troponin I < 0.03 ng/mL (< 0.04) 09/14/17 10:17 Triglycerides 85 mg/dL (< 150) 09/14/17 04:48 Entire Visit Hgb 14.4 g/dL (12.9-16.9) 09/14/17 04:48 Hct 41.6 % (37.5-50.1) 09/14/17 04:48 Total Bilirubin 0.6 mg/dL (0.3-1.0) 09/14/17 04:48 AST 19 Units/L (13-39) 09/14/17 04:48 ALT 20 Units/L (7-52) 09/14/17 04:48 Lipase 10 Units/L (11-82) L 09/13/17 19:55 Consult Discharge Plan - Plan Instructions: Chest Pain (DC) Referrals: David Alston MD [Primary Care Provider] - 09/20/17 10:15 am Miguel Nguyen MD [Partnered Physician] - 09/21/17 2:50 pm <Miguel Nguyen - Last Filed: 09/15/17 13:20> Date of Encounter: 09/15/17 - Time Spent With Patient Total time spent is greater than 50% in coordination of care (as documented) at patient's floor/unit and/or counseling patient: GI History of Present Illness - Data of Consult Requesting Physician: Darwin Nicole MD - Consult Narrative History of present illness: Mr. Currie is a 67 year old male - Constitutional Vitals: Temp Pulse Resp BP Pulse Ox 97.6 F 66 15 118/85 96 09/15/17 10:50 09/15/17 10:50 09/15/17 10:50 09/15/17 10:50 09/15/17 10:50 Results - Labs CBC & Chem 7: 09/14/17 04:48 09/14/17 04:48 Labs: Last Result Calcium 9.4 mg/dL (8.6-10.3) 09/14/17 04:48 Troponin I < 0.03 ng/mL (< 0.04) 09/14/17 10:17 Triglycerides 85 mg/dL (< 150) 09/14/17 04:48 Entire Visit Hgb 14.4 g/dL (12.9-16.9) 09/14/17 04:48 Hct 41.6 % (37.5-50.1) 09/14/17 04:48 Total Bilirubin 0.6 mg/dL (0.3-1.0) 09/14/17 04:48 AST 19 Units/L (13-39) 09/14/17 04:48 ALT 20 Units/L (7-52) 09/14/17 04:48 Lipase 10 Units/L (11-82) L 09/13/17 19:55 - Attending Attestation I have personally performed a face to face evaluation on this patient. I have reviewed and agree with the care plan. History and Exam by me shows: Patient with this chest pain does has a history of GERD. Cardiac workup is negative. EGD to rule out esophageal etiology for his symptoms if EGD negative and still has symptom in the future then manometry as an outpatient
--- NOTE | 2017-09-16 17:05 | Electrocardiograph Report ---
[place] [id number] Test Date: 2017-09-13 Pat Name: Mele Currie Department: 104 Room: 3B11 Gender: M Technical Services Assistant: NAKUL : 1950 Requested By: Atul Choi Order Number: [id number] Reading MD: Alina Castle Measurements Intervals [place] Rate: 87 P: 44 VA: 196 QRS: -38 QRSD: 102 T: 73 QT: 358 QTc: 402 Interpretive Statements SINUS RHYTHM WITH FREQUENT VENTRICULAR PREMATURE COMPLEXES IN A BIGEMINAL PATTERN MARKED LEFT AXIS DEVIATION NONSPECIFIC T-WAVE ABNORMALITY Electronically Signed On 09-16-2017 17:03:47 EDT by Alina Castle
== END 2017-09-15 11:28 | disposition home or self-care (01) ==
LOC: UNDODISOB → EMEROO 19:15 → 3BNU 19:15
PROVIDERS: ADMIT Internal Medicine Cardiovascular Disease; ATTEND Internal Medicine Cardiovascular Disease
PROC: ENDOEBX (2017-09-15 07:30)